=== PATIENT | female | born 1965 | race Hispanic/Latino ===

== ENCOUNTER 2016-10-21 19:46 | Emergency (ER) | payer SELFPAY ==
[2016-10-21 19:46] VITALS: BMI 25.8
[2016-10-21 20:07] VITALS: TEMP 98.3
--- NOTE | 2016-10-21 20:17 | ED PDOC ---
Arrival/HPI - General Historian: Patient <Suly Devi A - Last Filed: 10/21/16 21:13> <Pedro Chen - Last Filed: 10/21/16 21:23> - General Chief Complaint: Trauma Time Seen by Provider: 10/21/16 20:10 - History of Present Illness Narrative History of Present Illness (Text): 10/21/16 20:11 51yo female who present with complaint of left sided neck and chest pain s/p trauma . She denies wrist pain contrary to the triage. States she tripped and fell while in a store yesterday and landed with her knees flexed. states started having left sided neck pain and chest pain today. Chest pain is when she coughs and neck pain is with palpation. States she took 2tabs of OTC Ibuprofen earlier with some relieve. Denies hitting head anywhere. Denies LOC, focal weakness, headache, dizziness, visual change. (Suly Devi A) Past Medical History - Provider Review Nursing Documentation Reviewed: Yes - Infectious Disease Hx of Infectious Diseases: None - Cardiac Hx Cardiac Disorders: Yes Hx Hypertension: Yes - Pulmonary Hx Respiratory Disorders: No - Neurological Hx Neurological Disorder: No - HEENT Hx HEENT Disorder: No - Renal Hx Renal Disorder: No - Endocrine/Metabolic Hx Endocrine Disorders: Yes Hx Hypothyroidism: Yes - Psychiatric Hx Substance Use: No - Past Surgical History Past Surgical History: No Previous - Surgical History Hx Cholecystectomy: Yes - Anesthesia Hx Anesthesia: Yes Hx Anesthesia Reactions: No - Suicidal Assessment Feels Threatened In Home Enviroment: No <Suly Devi A - Last Filed: 10/21/16 21:13> Family/Social History - Physician Review Nursing Documentation Reviewed: Yes Family/Social History: Unknown Family HX Smoking Status: Current Some Days Smoker Hx Alcohol Use: Yes Hx Substance Use: No <Suly Devi A - Last Filed: 10/21/16 21:13> Allergies/Home Meds <Suly Devi A - Last Filed: 10/21/16 21:13> <Pedro Chen - Last Filed: 10/21/16 21:23> Allergies/Adverse Reactions: Allergies No Known Allergies Allergy (Verified 10/21/16 20:03) Home Medications: Home Meds Medication Instructions Recorded Confirmed Levothyroxine Sodium 0.112 mg PO DAILY 05/08/14 10/21/16 Lisinopril [Zestril] 20 mg PO DAILY 09/17/15 10/21/16 Review of Systems - Physician Review All systems were reviewed & negative as marked: Yes - Review of Systems Constitutional: Normal Eyes: Normal ENT: Normal Respiratory: Normal Cardiovascular: Chest Pain Gastrointestinal: Normal Genitourinary Female: Normal Musculoskeletal: Neck Pain Skin: Normal Neurological: Normal Endocrine: Normal Hemo/Lymphatic: Normal Psychiatric: Normal <Suly Devi - Last Filed: 10/21/16 21:13> Physical Exam Vital Signs Reviewed: Yes Temperature: Afebrile Blood Pressure: Normal Pulse: Regular Respiratory Rate: Normal Appearance: Positive for: Well-Appearing, Non-Toxic, Comfortable Pain Distress: None Mental Status: Positive for: Alert and Oriented X 3 - Systems Exam Head: Present: Atraumatic, Normocephalic Pupils: Present: PERRL Extroacular Muscles: Present: EOMI Conjunctiva: Present: Normal Mouth: Present: Moist Mucous Membranes Neck: Present: Normal Range of Motion, Paraspinal Tenderness (LEft sided tenderness). No: MIDLINE TENDERNESS Respiratory/Chest: Present: Clear to Auscultation, Good Air Exchange, Tender to Palpation (Left sternal wall). No: Respiratory Distress, Accessory Muscle Use, Wheezes, Decreased Breath Sounds, Retracting, Rhonchi, Tachypneic Cardiovascular: Present: Regular Rate and Rhythm, Normal S1, S2. No: Murmurs Abdomen: Present: Normal Bowel Sounds. No: Tenderness, Distention, Peritoneal Signs Back: Present: Normal Inspection Upper Extremity: Present: Normal Inspection. No: Cyanosis, Edema Lower Extremity: Present: Normal Inspection. No: Edema Neurological: Present: GCS=15, CN II-XII Intact, Speech Normal Skin: Present: Warm, Dry, Normal Color. No: Rashes Psychiatric: Present: Alert, Oriented x 3, Normal Insight, Normal Concentration <Suly Devi - Last Filed: 10/21/16 21:13> Medical Decision Making <Suly Devi - Last Filed: 10/21/16 21:13> <Pedro Chen - Last Filed: 10/21/16 21:23> ED Course and Treatment: 10/21/16 21:18 Cervical spine xray - No acute finding CXR - No PTX. Result was DW the pt . She was refered to her PMD. DC with naprosn and flexeril (Suly Devi) - RAD Interpretation Radiology Orders: 10/21/16 20:10 CHEST TWO VIEWS (PA/LAT) [RAD] Stat CERVICAL SPINE >18YR W/OBLIQUE [RAD] Stat - Medication Orders Current Medication Orders: Discontinued Medications Cyclobenzaprine HCl (Flexeril) 10 mg PO STAT STA Stop: 10/21/16 21:12 Last Admin: 10/21/16 21:20 Dose: Not Given Non-Admin Reason: Patient Refused Ketorolac Tromethamine (Toradol) 60 mg IM STAT STA Stop: 10/21/16 21:12 Last Admin: 10/21/16 21:21 Dose: 60 mg - PA / SPACE CONTROL SUPERVISOR / Resident Statement / has reviewed & agrees with the documentation as recorded. <Pedro Chen - Last Filed: 10/21/16 21:23> Disposition/Present on Arrival - Present on Arrival Any Indicators Present on Arrival: No History of DVT/PE: No History of Uncontrolled Diabetes: No Urinary Catheter: No History of Decub. Ulcer: No History Surgical Site Infection Following: None - Disposition Have Diagnosis and Disposition been Completed?: Yes Disposition Time: 21:15 Patient Plan: Discharge <Suly Devi - Last Filed: 10/21/16 21:13> <Pedro Chen - Last Filed: 10/21/16 21:23> - Disposition Diagnosis: Cervical sprain, Chest pain Disposition: HOME/ ROUTINE Condition: STABLE Discharge Instructions (ExitCare): Chest Pain (ED) Additional Instructions: Follow up with your Doctor Return to ED for any new or worsening symptoms Prescriptions: Cyclobenzaprine [Cyclobenzaprine HCl] 10 mg PO TID #9 tab Naproxen [Naprosyn] 500 mg PO BID #20 tab Referrals: Gayle Brizuela DO [Primary Care Provider] - Follow up with primary Forms: WORK NOTE
[2016-10-21 23:58] VITALS: BP 123/82; PULSE 76; RESP 18; O2SAT 97
--- NOTE | 2016-10-22 08:26 | RAD ---
PROCEDURE: Cervical Spine Radiographs. HISTORY: Pain. COMPARISON: None. FINDINGS: BONES: Straightening of the normal cervical lordosis press No fracture. Dens Intact. C4-5 C5-6 and C6-7 anterior disc calcifications and/or limbus vertebrae developmental variant suggested. Minimal spondylitic morphology very early in subtle suggested at the same segments. DISC SPACES: Normal. SOFT TISSUES: Normal. No prevertebral soft tissue swelling. OTHER FINDINGS: None. IMPRESSION: No fracture subluxation. No foraminal stenosis appreciated. Other findings as above. Cervical spine straightening consistent with spasm and/or positioning
--- NOTE | 2016-10-22 08:58 | RAD ---
HISTORY: chest pain s/p trauma COMPARISON: 05/08/2016 and 05/08/2014 TECHNIQUE: Chest PA and lateral FINDINGS: LUNGS: No active pulmonary disease. The nodular appearance to the right hilum is stable since 2013 is and is likely normal for this patient a prominent vessels seen on end PLEURA: No significant pleural effusion identified. No pneumothorax apparent. CARDIOVASCULAR: Normal. OSSEOUS STRUCTURES: No significant abnormalities. VISUALIZED UPPER ABDOMEN: Normal. OTHER FINDINGS: None. IMPRESSION: No active disease.
== END 2016-10-21 21:25 | disposition home or self-care (01) ==
LOC: ED 19:46
DX: R07.9 Chest pain, unspecified (principal); S13.4XXA Sprain of ligaments of cervical spine, initial encounter; W01.0XXA Fall on same level from slipping, tripping and stumbling without subsequent striking against object, initial encounter; Y92.512 Supermarket, store or market as the place of occurrence of the external cause; I10 Essential (primary) hypertension
CPT/HCPCS: 71020; 72050; 96372; 99284; J1885

== ENCOUNTER 2016-11-11 14:31 | Emergency (ER) | payer OTHER ==
[2016-11-11 14:49] VITALS: RESP 18; TEMP 97.9; O2SAT 99
[2016-11-11 14:55] VITALS: BMI 25.2
--- NOTE | 2016-11-11 15:35 | ED PDOC ---
Arrival/HPI - General Historian: Patient - General Chief Complaint: Headache Time Seen by Provider: 11/11/16 14:36 - History of Present Illness Narrative History of Present Illness (Text): 11/11/16 15:32 51-year-old female with history of hypertension and hypothyroidism presents to the emergency room complaining of one day history of right-sided headache. Patient reports waking up this morning with sensitivity to the right side of her occipital scalp associated with a shooting-type headache in the same area that is intermittent with no associated symptoms, and no exacerbating or alleviating factors. Otherwise: (-) thunderclap headache, (-) worse headache of life, (-) prior similar episodes in the past, (-) rash, (-) nausea, (-) vomiting , (-) photophobia, (-) phonophobia, (-) URI symptoms, (-) fever, (-) trauma, (- ) subjective neurologic symptoms. PMD Brizuela (Ramón SAAB,Francie Leigh) Past Medical History - Provider Review Nursing Documentation Reviewed: Yes - Infectious Disease Hx of Infectious Diseases: None - Reproductive Menopause: Yes - Cardiac Hx Cardiac Disorders: Yes Hx Hypertension: Yes - Pulmonary Hx Respiratory Disorders: No - Neurological Hx Neurological Disorder: No - HEENT Hx HEENT Disorder: No - Renal Hx Renal Disorder: No - Endocrine/Metabolic Hx Endocrine Disorders: Yes Hx Hypothyroidism: Yes - Psychiatric Hx Substance Use: No - Past Surgical History Past Surgical History: No Previous - Surgical History Hx Cholecystectomy: Yes - Anesthesia Hx Anesthesia: Yes Hx Anesthesia Reactions: No - Suicidal Assessment Feels Threatened In Home Enviroment: No Family/Social History - Physician Review Nursing Documentation Reviewed: Yes Family/Social History: No Known Family HX Smoking Status: Heavy Smoker > 10 Cigarettes Daily Hx Alcohol Use: Yes Hx Substance Use: No Allergies/Home Meds Allergies/Adverse Reactions: Allergies No Known Allergies Allergy (Verified 11/11/16 14:55) Home Medications: Home Meds Medication Instructions Recorded Confirmed Levothyroxine Sodium 0.112 mg PO DAILY 05/08/14 11/11/16 Lisinopril [Zestril] 20 mg PO DAILY 09/17/15 11/11/16 Review of Systems - Review of Systems Constitutional: Normal. absent: Fatigue, Weight Change, Fevers Respiratory: Normal. absent: SOB, Cough, Sputum Cardiovascular: Normal. absent: Chest Pain, Palpitations, Edema Musculoskeletal: Normal. absent: Arthralgias, Back Pain, Neck Pain Skin: Normal. absent: Rash, Pruritis, Skin Lesions Neurological: Normal, Headache. absent: Dizziness, Focal Weakness Physical Exam - Physical Exam Narrative Physical Exam (Text): 11/11/16 15:36 GENERAL APPEARANCE: Patient is awake, alert, oriented x 3, in no acute distress. Patient sitting in bed smiling, in no acute distress. SKIN: Warm, dry; (-) cyanosis; (-) rash. HEAD: (-) scalp swelling, (+) tenderness to palpation to the R occipital scalp with no rash noted, (-) temporal artery tenderness. EYES: (-) conjunctival pallor, (-) scleral icterus. ENMT: (-) sinus tenderness; mucous membranes moist. NECK: (-) tenderness, (-) stiffness, (-) meningismus, (-) lymphadenopathy. CHEST AND RESPIRATORY: (-) rales, (-) rhonchi, (-) wheezes; breath sounds equal bilaterally. HEART AND CARDIOVASCULAR: (-) irregularity; (-) murmur, (-) gallop. ABDOMEN AND GI: Soft; (-) tenderness. EXTREMITIES: (-) deformity. NEURO AND PSYCH: Mental status as above. welding estimator: Pupils equal and reactive; EOMI ; (-) facial asymmetry; tongue and uvula midline. Strength and DTRs symmetric. Babinski normal bilaterally. (Ramón SAAB,Francie Leigh) Vital Signs Temp Pulse Resp BP Pulse Ox 11/11/16 15:42 79 18 137/79 99 11/11/16 14:48 97.9 F 83 18 139/82 99 Medical Decision Making ED Course and Treatment: I was available for consultation during PA evaluation. The chart reviewed by me , and I agree with disposition. The documented history was done by the physician licensing engineer. The documented physical exam was done by the physician licensing engineer. The documented procedures were done by the physician licensing engineer. (Adan Monzon) 11/11/16 15:36 51-year-old female with history of hypertension and hypothyroidism presents to the emergency room complaining of one day history of right-sided headache and skin sensitivity to the area of pain. Based on history and exam to consider herpes zoster, tension headache versus migraine headache. At this time patient is refusing and analgesic pain medications. Plan: -CT head without contrast -Urine hCG 11/11/16 16:00 Urine hcg (-), patient went to CT immediately afterwards. Patient returns from CT without any incident. On reevaluation, patient is sitting comfortably in bed in no acute distress, she is smiling. She is still refusing any analgesics at this time. Repeat neuro exam shows no acute focal findings. CT head results reviewed and shows no acute findings. CT head results discussed the patient in great detail. Advised to follow up with her PMD in 2 days for reevaluation without fail. Advised to take only Tylenol for now for her headache. Otherwise instructed to return to the ER at any time for any new or worsening symptoms. Patient states she fully agrees with and understands discharge instructions. States that she agrees with the plan and disposition. Verbalized and repeated discharge instructions and plan. I have given the patient opportunity to ask any additional questions. (Francie Melgar PA-C) - RAD Interpretation Narrative RAD Interpretations (Text): 11/11/16 16:23 CT HEAD W/O CONTRAST: FINDINGS: HEMORRHAGE: No intracranial hemorrhage. BRAIN: No mass effect or edema. No evidence of acute infarct. Probable dilated perivascular space beneath left lentiform nucleus. VENTRICLES: Unremarkable. No hydrocephalus. CALVARIUM: Unremarkable. PARANASAL SINUSES: Unremarkable as visualized. No significant inflammatory changes. MASTOID AIR CELLS: Unremarkable as visualized. No inflammatory changes. OTHER FINDINGS: None. IMPRESSION: No intracranial mass, hemorrhage or evidence of acute infarct. (Francie Melgar PA-C) Radiology Orders: 11/11/16 15:15 HEAD W/O CONTRAST [CT] Stat - PA / SHEET METAL TECHNICIAN / Resident Statement MD/DO has reviewed & agrees with the documentation as recorded. Disposition/Present on Arrival - Present on Arrival Any Indicators Present on Arrival: No History of DVT/PE: No History of Uncontrolled Diabetes: No Urinary Catheter: No History of Decub. Ulcer: No History Surgical Site Infection Following: None - Disposition Have Diagnosis and Disposition been Completed?: Yes Disposition Time: 16:30 Patient Plan: Discharge - Disposition Diagnosis: Headache Disposition: HOME/ ROUTINE Condition: STABLE Discharge Instructions (ExitCare): Acute Headache (ED) Print Language: VIETNAMESE Additional Instructions: Thank you for letting us take care of you today. You were treated for headache. The emergency medical care you received today was directed at your acute symptoms. Return to the Emergency Department if your symptoms worsen, do not improve, or if you have any other problems. Please contact your doctor in 2 days for re-evaluation and follow up. Bring any paperwork you were given at discharge with you along with any medications you are taking to your follow up visit. Our treatment cannot replace ongoing medical care by a primary care provider (PCP) outside of the emergency department. Thank you for allowing the [facility] team to be part of your care today. Referrals: Gayle Brizuela V, [Primary Care Provider] - Follow up with primary Forms: WORK NOTE
--- NOTE | 2016-11-11 16:17 | CT ---
PROCEDURE: CT HEAD WITHOUT CONTRAST. HISTORY: R sided headache COMPARISON: 09/17/2015 TECHNIQUE: Axial computed tomography images were obtained through the head/brain without intravenous contrast. Radiation dose: Total exam DLP = 725.84 mGy-cm. This CT exam was performed using one or more of the following dose reduction techniques: Automated exposure control, adjustment of the mA and/or kV according to patient size, and/or use of iterative reconstruction technique. FINDINGS: HEMORRHAGE: No intracranial hemorrhage. BRAIN: No mass effect or edema. No evidence of acute infarct. Probable dilated perivascular space beneath left lentiform nucleus. VENTRICLES: Unremarkable. No hydrocephalus. CALVARIUM: Unremarkable. PARANASAL SINUSES: Unremarkable as visualized. No significant inflammatory changes. MASTOID AIR CELLS: Unremarkable as visualized. No inflammatory changes. OTHER FINDINGS: None. IMPRESSION: No intracranial mass, hemorrhage or evidence of acute infarct.
[2016-11-11 16:55] VITALS: BP 135/71
[2016-11-11 17:06] VITALS: PULSE 76
== END 2016-11-11 17:06 | disposition home or self-care (01) ==
LOC: ED 14:31
DX: R51 Headache (principal); I10 Essential (primary) hypertension; F17.210 Nicotine dependence, cigarettes, uncomplicated

== ENCOUNTER 2017-10-18 18:48 | Emergency (ER) | payer OTHER ==
[2017-10-18 18:48] VITALS: BMI 25.2
[2017-10-18 18:57] VITALS: RESP 18; TEMP 98.1
--- NOTE | 2017-10-18 19:45 | ED PDOC ---
Arrival/HPI - General Historian: Patient - General Chief Complaint: ENT Problem Time Seen by Provider: 10/18/17 19:07 - History of Present Illness Narrative History of Present Illness (Text): Patient is a 52 year old female with a past medical history of hypothyroidism who presents to the emergency department for evaluation and treatment of left ear pain with associated muffled hearing. States symptoms began yesterday with no specific provoking event. Denies exacerbating and remitting factors. Denies recent swim. The left ear pain is characterized as being sharp in nature, rated a 4/10. Denies fever, chills, chest pain, shortness of breath, abdominal pain, nausea, vomiting, diarrhea, constipation, and urinary symptoms. 10/18/17 19:41 (Diego Fernandez) Past Medical History - Travel History Have you recently traveled outside [place] w/in the past 3 mons?: No - Past History Past History: Non-Contributing - Infectious Disease Hx of Infectious Diseases: None - Cardiac Hx Cardiac Disorders: Yes Hx Hypertension: Yes (Controlled) - Pulmonary Hx Respiratory Disorders: No - Neurological Hx Neurological Disorder: No - HEENT Hx HEENT Disorder: No - Renal Hx Renal Disorder: No - Endocrine/Metabolic Hx Endocrine Disorders: Yes Hx Hypothyroidism: Yes - Psychiatric Hx Substance Use: No - Past Surgical History Past Surgical History: No Previous - Surgical History Hx Cholecystectomy: Yes - Anesthesia Hx Anesthesia: Yes Hx Anesthesia Reactions: No - Suicidal Assessment Feels Threatened In Home Enviroment: No Family/Social History - Physician Review Nursing Documentation Reviewed: Yes Family/Social History: Unknown Family HX Smoking Status: Heavy Smoker > 10 Cigarettes Daily Hx Alcohol Use: Yes Hx Substance Use: No Allergies/Home Meds Allergies/Adverse Reactions: Allergies No Known Allergies Allergy (Verified 10/18/17 18:57) Home Medications: Home Meds Medication Instructions Recorded Confirmed Levothyroxine Sodium 100 mcg PO DAILY 05/08/14 10/18/17 Review of Systems - Physician Review All systems were reviewed & negative as marked: Yes - Review of Systems Constitutional: Normal Eyes: Normal ENT: Hearing Changes. absent: Tinnitus, TMJ Pain, Voice Changes, Rhinorrhea, Sinus Congestion Respiratory: Normal Cardiovascular: Normal Gastrointestinal: Normal Genitourinary Female: Normal Musculoskeletal: Normal Skin: Normal Neurological: Normal Endocrine: Normal Hemo/Lymphatic: Normal Psychiatric: Normal Physical Exam Vital Signs Reviewed: Yes Temperature: Afebrile Blood Pressure: Normal Pulse: Regular Respiratory Rate: Normal Appearance: Positive for: Well-Appearing, Non-Toxic, Comfortable Pain Distress: None Mental Status: Positive for: Alert and Oriented X 3 - Systems Exam Head: Present: Atraumatic, Normocephalic Pupils: Present: PERRL Extroacular Muscles: Present: EOMI Conjunctiva: Present: Normal Ears: Present: Erythema. No: Normal Canal, TM Bulging Mouth: Present: Moist Mucous Membranes Neck: Present: Normal Range of Motion Respiratory/Chest: Present: Clear to Auscultation, Good Air Exchange. No: Respiratory Distress, Accessory Muscle Use Cardiovascular: Present: Regular Rate and Rhythm, Normal S1, S2. No: Murmurs Abdomen: No: Tenderness, Distention, Peritoneal Signs Back: Present: Normal Inspection Upper Extremity: Present: Normal Inspection. No: Cyanosis, Edema Lower Extremity: Present: Normal Inspection. No: Edema Neurological: Present: GCS=15, CN II-XII Intact, Speech Normal Skin: Present: Warm, Dry, Normal Color. No: Rashes Psychiatric: Present: Alert, Oriented x 3, Normal Insight, Normal Concentration Vital Signs Temp Pulse Resp BP Pulse Ox 10/18/17 20:01 98.1 F 69 18 121/71 100 10/18/17 18:54 98.1 F 85 18 126/84 99 Medical Decision Making ED Course and Treatment: Assessment and Plan: Patient is a 52 year old female with a past medical history of hypothyroidism who presents to the emergency department for evaluation and treatment of left ear pain with associated muffled hearing. Otitis Media - amoxicillin 500mg PO TID for 10 days 10/18/17 19:46 (Diego Fernandez) 10/18/17 21:19 pt seen with resident, left ear pain x 1 days, tm erythematous, no foreign body. no mastoid ttp. (MarcelaTesfaye) - Medication Orders Current Medication Orders: Discontinued Medications Amoxicillin (Amoxil 500 Mg Cap) 500 mg PO STAT STA PRN Reason: Protocol Stop: 10/18/17 19:38 Last Admin: 10/18/17 19:49 Dose: 500 mg Disposition/Present on Arrival - Present on Arrival Any Indicators Present on Arrival: Yes History of DVT/PE: No History of Uncontrolled Diabetes: No Urinary Catheter: No History of Decub. Ulcer: No History Surgical Site Infection Following: None - Disposition Have Diagnosis and Disposition been Completed?: Yes Disposition Time: 19:47 - Disposition Diagnosis: Otitis media Disposition: HOME/ ROUTINE Condition: STABLE Discharge Instructions (ExitCare): Ear Infections (Otitis Media) Additional Instructions: follow up with specialsit and your doctor. return to emergency room with worsening symptoms or concerns. Prescriptions: Amoxicillin 500 mg PO TID 10 Days tablet Referrals: [facility] [Outside] - [facility] up with primary [facility] [place] - Follow up with primary Edward Fine DO [Doctor Osteopathy] - Follow up with primary Forms: Vertro (Divehi)
[2017-10-18 20:15] VITALS: BP 121/71; PULSE 69; O2SAT 100
== END 2017-10-18 20:01 | disposition home or self-care (01) ==
LOC: ED 18:48
DX: H66.92 Otitis media, unspecified, left ear (principal); I10 Essential (primary) hypertension; F17.210 Nicotine dependence, cigarettes, uncomplicated; E03.9 Hypothyroidism, unspecified

== ENCOUNTER 2017-10-20 17:59 | Emergency (ER) | payer OTHER ==
[2017-10-20 17:59] VITALS: BMI 25.2
[2017-10-20 18:14] VITALS: RESP 18; TEMP 98.4
[2017-10-20] MEDS ORDERED: Oxycodone/Acetaminophen 5/325 mg Tab PO STA (19:38)
--- NOTE | 2017-10-20 21:29 | ED PDOC ---
Arrival/HPI - General Chief Complaint: ENT Problem Time Seen by Provider: 10/20/17 18:41 Historian: Patient - History of Present Illness Narrative History of Present Illness (Text): 10/20/17 21:26 52yo female with pmhx of hypothyroid present with left ear pain associated with muffled sound. she notes that symptom started days ago and she was seen here 2days ago for same symptom. States the antibiotic she was given didn't improve her pain so she saw her PMD who placed her on Cipro otic. states she started the Cipro yesterday and it didn't help so she saw someone else and was given Neomycin. She states she used it today and still having pain. Also states she was given Naprosyn for the pain without relieve. She denies trauma, drainage from ear, fever, chills, recent swimming, dizziness, any other complaint. Past Medical History - Provider Review Nursing Documentation Reviewed: Yes - Past History Past History: Non-Contributing - Infectious Disease Hx of Infectious Diseases: None - Reproductive Menopause: Yes (LMP 7 months ago) - Cardiac Hx Cardiac Disorders: Yes Hx Hypertension: Yes (Controlled) - Pulmonary Hx Respiratory Disorders: No - Neurological Hx Neurological Disorder: No - HEENT Hx HEENT Disorder: No - Renal Hx Renal Disorder: No - Endocrine/Metabolic Hx Endocrine Disorders: Yes Hx Hypothyroidism: Yes - Hematological/Oncological Hx Blood Disorders: No - Integumentary Hx Dermatological Disorder: No - Musculoskeletal/Rheumatological Hx Musculoskeletal Disorders: No - Gastrointestinal Hx Gastrointestinal Disorders: No - Genitourinary/Gynecological Hx Genitourinary Disorders: No - Psychiatric Hx Psychophysiologic Disorder: No Hx Substance Use: No - Past Surgical History Past Surgical History: No Previous - Surgical History Hx Cholecystectomy: Yes - Anesthesia Hx Anesthesia: Yes Hx Anesthesia Reactions: No - Suicidal Assessment Feels Threatened In Home Enviroment: No Family/Social History - Physician Review Nursing Documentation Reviewed: Yes Family/Social History: Unknown Family HX Smoking Status: Heavy Smoker > 10 Cigarettes Daily Hx Alcohol Use: Yes Hx Substance Use: No Allergies/Home Meds Allergies/Adverse Reactions: Allergies No Known Allergies Allergy (Verified 10/20/17 18:10) Home Medications: Home Meds Medication Instructions Recorded Confirmed Levothyroxine Sodium 100 mcg PO DAILY 05/08/14 10/20/17 Naproxen [Naprosyn] 500 mg PO PRN PRN 10/20/17 10/20/17 Review of Systems - Physician Review All systems were reviewed & negative as marked: Yes - Review of Systems Constitutional: Normal Eyes: Normal ENT: Other (Left ear pain) Respiratory: Normal Cardiovascular: Normal Gastrointestinal: Normal Genitourinary Female: Normal Musculoskeletal: Normal Skin: Normal Neurological: Normal Endocrine: Normal Hemo/Lymphatic: Normal Psychiatric: Normal Physical Exam Vital Signs Reviewed: Yes Vital Signs Temp Pulse Resp BP Pulse Ox 10/21/17 00:05 79 18 125/82 97 10/20/17 18:13 98.4 F 84 18 131/86 96 Temperature: Afebrile Blood Pressure: Normal Pulse: Regular Respiratory Rate: Normal Appearance: Positive for: Well-Appearing, Non-Toxic, Comfortable Pain Distress: None Mental Status: Positive for: Alert and Oriented X 3 - Systems Exam Head: Present: Atraumatic, Normocephalic Pupils: Present: PERRL Extroacular Muscles: Present: EOMI Conjunctiva: Present: Normal Ears: Present: Normal. No: NORMAL TM (Swelling of left TM noted), Erythema, Normal Canal, TM Bulging, Fluid, TM Perf Mouth: Present: Moist Mucous Membranes Neck: Present: Normal Range of Motion Respiratory/Chest: Present: Clear to Auscultation, Good Air Exchange. No: Respiratory Distress, Accessory Muscle Use Cardiovascular: Present: Regular Rate and Rhythm, Normal S1, S2. No: Murmurs Abdomen: No: Tenderness, Distention, Peritoneal Signs Back: Present: Normal Inspection Upper Extremity: Present: Normal Inspection. No: Cyanosis, Edema Lower Extremity: Present: Normal Inspection. No: Edema Neurological: Present: GCS=15, CN II-XII Intact, Speech Normal Skin: Present: Warm, Dry, Normal Color. No: Rashes Psychiatric: Present: Alert, Oriented x 3, Normal Insight, Normal Concentration Medical Decision Making ED Course and Treatment: 10/22/17 00:23 PT presented for stated history. Her pain was controlled in Emergency department with medication. Mastoid CT was ordered to r/o mastoiditis Mastoid none CT IMPRESSION: 1. There is minimal abnormal density within Prussak's space on the left side, which may be inflammatory or due to cholesteatoma. 2. Abnormal density is identified within the proximal left external auditory canal measuring approximately 1.0 x 0.7 x 0.6 cm. This is suggestive of cerumen or mass. Further clinical evaluation is recommended. 3. Mild effusions are visualized within the left mastoid air cells. 4. There is narrowing of the left external auditory canal, with wall thickening. Otitis externa is considered. 5. There is a tiny defect within the right tegmen tympani. 6. There is angulation of the left nasal bone, but this may represent an old fracture. Clinical correlation is recommended. 7. There is pneumatization of the bilateral petrous apices, with minimal effusions on the left side. 8. Paranasal sinus disease is noted above. Result was DW the pt. Ear wick was placed inside her left ear to help with better penetration of antibiotic drop. She already have Cipro and Neomycin otic drop. she was referred to ENT. - RAD Interpretation Radiology Orders: 10/20/17 18:42 MASTOIDS W/O CONTRAST [CT] Stat - Medication Orders Current Medication Orders: Discontinued Medications Oxycodone/Acetaminophen (Percocet 5/325 Mg Tab) 1 tab PO STAT STA Stop: 10/20/17 19:39 Last Admin: 10/20/17 20:29 Dose: 1 tab MAR Pain Assessment Document 10/20/17 20:29 JOL (Rec: 10/20/17 20:30 JOL [facility]) Pain Reassessment Is this a pain reassessment? No Sleep Is patient sleeping during reassessment? No Presence of Pain Presence of Pain Yes Pain Scale Used Pain Scale Used Numeric Location Left, Right or Bilateral Left Pain Location Body Site Ear Description Pain Behavior Crying Disposition/Present on Arrival - Present on Arrival Any Indicators Present on Arrival: No History of DVT/PE: No History of Uncontrolled Diabetes: No Urinary Catheter: No History of Decub. Ulcer: No History Surgical Site Infection Following: None - Disposition Have Diagnosis and Disposition been Completed?: Yes Diagnosis: Otitis externa Disposition: HOME/ ROUTINE Disposition Time: 23:50 Patient Plan: Discharge Condition: STABLE Discharge Instructions (ExitCare): Outer Ear Infection Additional Instructions: Follow up with your Doctor/ENT Return to ED for any new symptoms Prescriptions: oxyCODONE/Acetaminophen [Percocet 5/325 mg Tab] 1 ea PO Q6 #5 tab Referrals: Gayle Brizuela DO [Primary Care Provider] - Follow up with primary Rody,Edward C, DO [Doctor Osteopathy] - Follow up with primary Forms: [employer] (Vietnamese), WORK NOTE
--- NOTE | 2017-10-20 23:28 | CT ---
EXAM: CT Orbits, Sella, Posterior Fossa or Auditory System Without Intravenous Contrast EXAM DATE/TIME: 10/20/2017 6:42 PM CLINICAL HISTORY: The patient age is 52 years old and is female; Pain; Other: Ear; Additional info: Left ear/face pain Facility exam id and description: Ct mastwoc mastoids w/o contrast TECHNIQUE: Axial computed tomography images of the orbits, sella, posterior fossa or auditory system without intravenous contrast. All CT scans at this facility use one or more dose reduction techniques, viz.: automated exposure control; ma/kV adjustment per patient size (including targeted exams where dose is matched to indication; i.e. head); or iterative reconstruction technique. Coronal and sagittal reformatted images were created and reviewed. COMPARISON: CT - HEAD W/O CONTRAST 2016-11-11 15:51 FINDINGS: Right side: The inner ear structures including the membranous labyrinth appear within normal limits. The middle ear cavity including the ossicles appear within normal limits. The right tympanic membrane appears to be intact. The external auditory canal is within normal limits. There is a tiny defect within the tegmen tympani. The scutum is sharp. The right mastoid air cells are clear. Left side: The inner ear structures including the membranous labyrinth appear within normal limits. The middle ear ossicles appear intact. The left tympanic membrane is poorly visualized. There is narrowing of the left external auditory canal, with wall thickening. Otitis externa is considered. The tegmen tympani is intact. The scutum is sharp. There is minimal abnormal density within Prussak's space, which may be inflammatory or due to cholesteatoma. Abnormal density is identified within the proximal left external auditory canal measuring approximately 1.0 x 0.7 x 0.6 cm. This is suggestive of cerumen or mass. Mild effusions are visualized within the left mastoid air cells. Bones/joints: There is angulation of the left nasal bone, but this may represent an old fracture. There is pneumatization of the bilateral petrous apices, with minimal effusions on the left side. Soft tissues: No significant soft tissue swelling visualized. Sinuses: Mucosal thickening with mucous retention cysts or polyps are visualized within the left maxillary sinus. There is minimal mucosal thickening of a few ethmoid air cells. There is mild mucosal thickening of the right maxillary sinus. IMPRESSION: 1. There is minimal abnormal density within Prussak's space on the left side, which may be inflammatory or due to cholesteatoma. 2. Abnormal density is identified within the proximal left external auditory canal measuring approximately 1.0 x 0.7 x 0.6 cm. This is suggestive of cerumen or mass. Further clinical evaluation is recommended. 3. Mild effusions are visualized within the left mastoid air cells. 4. There is narrowing of the left external auditory canal, with wall thickening. Otitis externa is considered. 5. There is a tiny defect within the right tegmen tympani. 6. There is angulation of the left nasal bone, but this may represent an old fracture. Clinical correlation is recommended. 7. There is pneumatization of the bilateral petrous apices, with minimal effusions on the left side. 8. Paranasal sinus disease is noted above.
[2017-10-21 00:43] VITALS: BP 125/82; PULSE 79; O2SAT 97
== END 2017-10-21 00:05 | disposition home or self-care (01) ==
LOC: ED 17:59
DX: H60.92 Unspecified otitis externa, left ear (principal); F17.210 Nicotine dependence, cigarettes, uncomplicated; I10 Essential (primary) hypertension; E03.9 Hypothyroidism, unspecified

== ENCOUNTER 2018-02-16 14:01 | Emergency (ER) | payer OTHER ==
[2018-02-16 14:01] VITALS: BMI 25.2
[2018-02-16 14:11] VITALS: TEMP 98.5
--- NOTE | 2018-02-16 15:00 | ED PDOC ---
Arrival/HPI - History of Present Illness Narrative History of Present Illness (Text): 02/16/18 14:59 Pt is a 52 yo F with pmhx of hypothyroidism and HLD who presents for chest tightness and R sided arm pain radiating to neck. She states that both the chest pain and chest tightness began today. She emphasizes it is not chest pain and it is not related to exertion, it is a chest tightness that is present off and on today. She denies any recent trauma to the head or neck. She denies any numbness, tingling or weakness. She admits to having some anxiety at this time. She also admits to lightheadedness in addition to the chest tightness and R arm pain. She denies that the chest tightness feels like pain or is radiating to the back, denies it feeling like a tearing sensation. She currently denies fevers, chills, SOB, cough, abd pain, n/v, c/d, dysuria or hematuria. She is currently going thorough menopause. She admits that her job is very stressful. Pmhx: Hypothyroidism, HLD Pshx: Lamar tatum All: NKDA Social: 1/2ppd smoker for 37 years, occasional etOH use (beer every weekend), marijuana - last week was last time used Fam Hx: Dad - Lung ca, Mom - DM, HTN, HLD, a-fib 02/16/18 15:49 <Malik El - Last Filed: 02/16/18 15:49> <Sharri Hammer - Last Filed: 02/16/18 16:43> - General Time Seen by Provider: 02/16/18 14:08 Past Medical History - Provider Review Nursing Documentation Reviewed: Yes - Past History Past History: Non-Contributing - Infectious Disease Hx of Infectious Diseases: None - Reproductive Menopause: Yes - Cardiac Hx Cardiac Disorders: Yes Hx Hypertension: Yes - Pulmonary Hx Respiratory Disorders: No - Neurological Hx Neurological Disorder: Yes Hx Headaches: Yes - HEENT Hx HEENT Disorder: Yes Other/Comment: OTITIS - Renal Hx Renal Disorder: No - Endocrine/Metabolic Hx Endocrine Disorders: Yes Hx Hypothyroidism: Yes - Hematological/Oncological Hx Blood Disorders: No - Integumentary Hx Dermatological Disorder: No - Musculoskeletal/Rheumatological Hx Musculoskeletal Disorders: No - Gastrointestinal Hx Gastrointestinal Disorders: Yes Hx Gall Bladder Disease: Yes - Genitourinary/Gynecological Hx Genitourinary Disorders: No - Psychiatric Hx Psychophysiologic Disorder: No Hx Substance Use: No - Past Surgical History Past Surgical History: No Previous - Surgical History Hx Cholecystectomy: Yes - Anesthesia Hx Anesthesia: Yes Hx Anesthesia Reactions: No - Suicidal Assessment Feels Threatened In Home Enviroment: No <NikkoGan - Last Filed: 02/16/18 15:49> Family/Social History - Physician Review Nursing Documentation Reviewed: Yes Family/Social History: Diabetes, Hypertension, Neoplasm/Cancer Smoking Status: Heavy Smoker > 10 Cigarettes Daily Hx Alcohol Use: Yes Hx Substance Use: No <NikkoMalik graff - Last Filed: 02/16/18 15:49> Allergies/Home Meds <Nikko,Gan - Last Filed: 02/16/18 15:49> <Sharri Hammer - Last Filed: 02/16/18 16:43> Allergies/Adverse Reactions: Allergies No Known Allergies Allergy (Verified 02/16/18 14:07) Home Medications: Home Meds Medication Instructions Recorded Confirmed Levothyroxine Sodium 112 mcg PO DAILY 05/08/14 10/20/17 Simvastatin [Zocor] 40 mg PO DAILY 02/16/18 02/16/18 Review of Systems - Review of Systems Constitutional: absent: Fevers, Night Sweats Respiratory: absent: SOB, Cough Cardiovascular: absent: Chest Pain (Denies chest pain and states it is chest tightness that is non-radiating, and non-exertional), Palpitations, Edema, Calf Pain, Syncope Gastrointestinal: absent: Abdominal Pain, Constipation, Diarrhea, Nausea, Vomiting, Hematochezia Genitourinary Female: absent: Dysuria, Hematuria Psychiatric: Anxiety <Nikko,Gan - Last Filed: 02/16/18 15:49> Physical Exam Vital Signs Reviewed: Yes Vital Signs Temp Pulse Resp BP Pulse Ox 02/16/18 14:56 74 18 127/72 98 02/16/18 14:08 98.5 F 81 17 145/96 H 98 Temperature: Afebrile Blood Pressure: Hypertensive Pulse: Regular Respiratory Rate: Normal Appearance: Positive for: Well-Appearing, Non-Toxic, Comfortable Pain Distress: None Mental Status: Positive for: Alert and Oriented X 3 - Systems Exam Head: Present: Atraumatic, Normocephalic Pupils: Present: PERRL Extroacular Muscles: Present: EOMI Respiratory/Chest: Present: Clear to Auscultation, Good Air Exchange. No: Respiratory Distress, Accessory Muscle Use, Wheezes, Rales, Rhonchi Cardiovascular: Present: Regular Rate and Rhythm, Normal S1, S2, Rub, Gallop. No: Murmurs Abdomen: Present: Normal Bowel Sounds. No: Tenderness, Distention, Peritoneal Signs, Rebound, Guarding Upper Extremity: Present: Normal Inspection, Normal ROM, NORMAL PULSES, Neurovascularly Intact, Capillary Refill < 2s. No: Cyanosis, Edema, Tenderness, Swelling, Erythema, Deformity Lower Extremity: Present: Normal Inspection. No: Edema, CALF TENDERNESS Neurological: Present: GCS=15, Speech Normal, Motor Func Grossly Intact, Normal Sensory Function Skin: Present: Warm, Dry, Normal Color. No: Rashes Psychiatric: Present: Alert, Oriented x 3, Normal Insight, Normal Concentration, Anxious <Malik El - Last Filed: 02/16/18 15:49> Vital Signs Temp Pulse Resp BP Pulse Ox 02/16/18 14:56 74 18 127/72 98 02/16/18 14:08 98.5 F 81 17 145/96 H 98 <Sharri Hammer - Last Filed: 02/16/18 16:43> Medical Decision Making ED Course and Treatment: 02/16/18 15:16 Pt is a 52 yo F with pmhx detailed above who presents for chest tightness and R arm and shoulder pain - CBC - CMP - Trop - EKG - ASA - CXR - RAD Interpretation Radiology Orders: 02/16/18 14:51 CHEST PORTABLE [RAD] Stat - Medication Orders Current Medication Orders: Discontinued Medications Aspirin (Aspirin Chewable) 324 mg PO STAT STA Stop: 02/16/18 14:52 Last Admin: 02/16/18 14:58 Dose: 324 mg <Malik El - Last Filed: 02/16/18 15:49> ED Course and Treatment: 02/16/18 15:22 52 year old female presents to the Emergency Department complaining of chest tightness associated with right side arm and neck pain. In agreement with resident note, which includes further HPI details. Patient was seen and evaluated with resident, came up with plan and treatment together. Patient reports R sided chest pain while at work today. Reports recent stress test. Reports repeated episodes of lightheadedness and fatigue at stressful job and reports hx of thyroid dysfunction (now medicated) 02/16/18 15:37 EKG shows NSR at 68bpm with incomplete RBBB, unchanged from prior 02/16/18 15:58 Stress test report from 02/13/18 available and shows "exercise stress nuclear study is normal. Normal LV systolic function. Normal BP response to stress. No stress induced arrhythmias" Trop x [address] Brizuela. He reports that patient has had persistent episodes of lightheadedness which she has been evaluated by neurology with negative workup. He reports that patient is unable to get carotid dopplers and echo until end of the month. He is recommending observation for further evaluation under Dr. Edmonds 02/16/18 16:14 02/16/18 16:28 Patient now reports that she wants to leave. The patient is choosing to leave against medical advice. I have personally explained to the patient that choosing to do so may result in permanent bodily harm or . I have discussed at great length that without further evaluation and monitoring there may be unforeseen circumstances and/or deterioration causing permanent bodily harm or as a result of their choice. The patient is alert, oriented, and shows the mental capacity to make clear decisions regarding the patients health care at this time. The patient continues to wish to leave against medical advice. In light of the patients decision to leave against medical advice, follow-up has been arranged and the patient is aware of the importance to following up as instructed. The patient has been advised that they should return to the emergency room immediately if they change their mind at any time, or if their condition begins to change or worsen in any way. 02/16/18 16:42 - RAD Interpretation Radiology Orders: 02/16/18 14:51 CHEST PORTABLE [RAD] Stat - Medication Orders Current Medication Orders: Discontinued Medications Aspirin (Aspirin Chewable) 324 mg PO STAT STA Stop: 02/16/18 14:52 Last Admin: 02/16/18 14:58 Dose: 324 mg <Sharri Hammer - Last Filed: 02/16/18 16:43> - PA / INDEPENDENT FREIGHT AGENT / Resident Statement MD/ has reviewed & agrees with the documentation as recorded. MD/ has examined the patient and agrees with the treatment plan. - Scribe Statement The provider has reviewed the documentation as recorded by the Betseyibe Bridgette Leger. All medical record entries made by the Scribe were at my direction and personally dictated by me. I have reviewed the chart and agree that the record accurately reflects my personal performance of the history, physical exam, [facility] decision making, and the department course for this patient. I have also personally directed, reviewed, and agree with the discharge instructions and disposition. <Sharri Hammer - Last Filed: 02/16/18 16:43> Disposition/Present on Arrival - Present on Arrival History of DVT/PE: No History of Uncontrolled Diabetes: No Urinary Catheter: No History of Decub. Ulcer: No History Surgical Site Infection Following: None <Malik El - Last Filed: 02/16/18 15:49> - Present on Arrival Any Indicators Present on Arrival: No - Disposition Have Diagnosis and Disposition been Completed?: Yes Disposition Time: 16:29 Patient Plan: Discharge <Sharri Hammer - Last Filed: 02/16/18 16:43> - Disposition Diagnosis: Chest pain, Lightheaded Disposition: AGAINST MEDICAL ADVICE Patient Problems: Current Active Problems Problem Status Onset Chest pain Acute Lightheaded Acute Condition: UNKNOWN
--- NOTE | 2018-02-16 15:32 | RAD ---
Date of service: 02/16/2018 HISTORY: chest pain COMPARISON: 10/21/2016 FINDINGS: LUNGS: The lungs are hyperinflated and there is peribronchial thickening with chronic changes in both lungs. No focal consolidation. PLEURA: No significant pleural effusion identified, no pneumothorax apparent. CARDIOVASCULAR: Normal. OSSEOUS STRUCTURES: No significant abnormalities. VISUALIZED UPPER ABDOMEN: Normal. OTHER FINDINGS: None. IMPRESSION: No active pulmonary disease. COPD.
[2018-02-16 15:36] LABS: BASO # 0.09 K/mm3 (0.0-2.0); BASO % 1.2 % (0.0-3.0); EOS # 0.2 (0.0-0.7); EOS % 2.9 % (1.5-5.0); GRAN # 3.98 (1.4-6.5); GRAN % 54.6 % (50.0-68.0); HEMOGLOBIN 14.6 g/dL (12.0-16.0); LYMPH # 2.5 (1.2-3.4); LYMPH % 33.7 % (22.0-35.0); MEAN CELL VOLUME 88.6 fl (80.0-105.0); MEAN CORPUSCULAR HEMOGLOBIN 31.4 pg (25.0-35.0); MEAN CORPUSCULAR HGB CONC 35.4 g/dl (31.0-37.0); MEAN PLATELET VOLUME 11.8 fl (7.0-11.0); MONO # 0.6 (0.1-0.6); MONO % 7.6 % (1.0-6.0); RBC 4.65 10^6/uL (3.5-6.1); RED CELL DISTRIBUTION WIDTH 13.2 % (11.5-14.5); WHITE BLOOD COUNT 7.3 10^3/ul (4.5-11.0)
[2018-02-16 15:38] VITALS: RESP 16
[2018-02-16 15:46] LABS: ALB/GLOB RATIO 1.3 (1.1-1.8); ALBUMIN 4.2 g/dL (3.0-4.8); ALT/SGPT 22 U/L (7-56); AST/SGOT 26 U/L (14-36); BLOOD UREA NITROGEN 13 mg/dL (7-21); CALCIUM 9.3 mg/dL (8.4-10.5); GFR NON-AFRICAN AMERICAN > 60
[2018-02-16 15:56] LABS: TROPONIN I < 0.01 ng/mL
[2018-02-16 16:49] VITALS: BP 108/66; PULSE 68; O2SAT 100
[2018-02-16 16:49] LABS: FREE T4 1.41 ng/dL (0.78-2.19)
--- NOTE | 2018-02-17 06:35 | CARD ---
APPROVED REPORT Date of service: 02/16/2018 EKG Measurement Heart [id number] <Conclusion> Normal sinus rhythm Incomplete right bundle branch block Borderline ECG
== END 2018-02-16 16:48 | disposition left against medical advice (07) ==
LOC: ED 14:01 → UNDOADMOB 16:16 → ERH 16:16
DX: R07.9 Chest pain, unspecified (principal); R42 Dizziness and giddiness; E78.5 Hyperlipidemia, unspecified; E03.9 Hypothyroidism, unspecified